=== PATIENT | female | born 1990 | race American Indian/Alaskan Native ===

== ENCOUNTER 2017-09-21 12:40 | Emergency (ER) | payer MEDICAID ==
[2017-09-21] MEDS ORDERED: ZOFRAN IV ONE (14:26)
[2017-09-21] MEDS ORDERED: NACL 0.9% 1000 ML 1,000 ML IV ONE (14:26)
--- NOTE | 2017-09-21 14:27 | Emergency Department Report ---
Blank Doc - Documentation Documentation: Patient is 27 to his old, 3 one was one miscarriage. Patient is 15 weeks with no care presented with nausea vomiting and dizziness for the last 3 days. Patient denied any vaginal bleeding or vaginal discharge. Patient will need IV fluids, Zofran and ultrasound.
--- NOTE | 2017-09-21 14:29 | Emergency Department Report ---
ED Dizziness HPI - General Chief Complaint: Dizziness Stated Complaint: /DIZZINESS Time Seen by Provider: 09/21/17 14:15 Source: patient Mode of arrival: Ambulatory Limitations: No Limitations - History of Present Illness Initial Comments: Patient is 27 to his old, 3 one was one miscarriage. Patient is 15 weeks with no care presented with nausea vomiting and dizziness for the last 3 days. Patient denied any vaginal bleeding or vaginal discharge. She denies any abdominal pain. She says she recently moved here from [place] and she secondary likely just and it's not helping. She does not have BUSINESS INITIATIVES MANAGER doctor in [place] she says she just got her insurance activated. Patient denies concern for STD and says she had STD check when she was first seen by BUSINESS INITIATIVES MANAGER [place]. She said it was negative and she is not having any symptoms for STD. Last nausea. Was 06/10/2017. Denies any urinary burning, frequency or urgency but reports that a urine is dark in color. Denies any blood in her urine. MD Complaint: dizziness, lightheadedness, other (nausea and vomiting at his ongoing on and off throughout . Patient reports poor appetite) Onset/Timin (ongoing on and off throughout ) -: days(s) Timing: sudden onset History of Same: No History of Trauma: No Severity: moderate Improves With: nothing Worsens With: nothing Associated Symptoms: loss of appetite, other (patient and reportedly nausea and vomiting and with no appetite). denies: ataxia, chest pain, confusion, cough, diaphoresis, fever/chills, malaise, rash, seizure, shortness of breath, syncope, weakness - Related Data Home Medications Medication Instructions Recorded Confirmed Last Taken Doxylamine Succinate/Vit B6 1 each PO 09/21/17 09/20/17 09:00 [uJan Manuel Gonzalez 10-10 mg Tablet] Pnv No.118/Iron Fumarate/FA 1 each PO QDAY 09/21/17 09/21/17 09/20/17 09:00 [ 19 Chewable] Previous Rx's Medication Instructions Recorded Last Taken Type Nitrofurantoin Monohyd/M-Cryst 100 mg PO Q12H 7 Days #14 capsule 09/21/17 Unknown Rx [Macrobid 100 mg Capsule] Ondansetron [Zofran Odt] 4 mg PO Q8H PRN #12 tab.rapdis 09/21/17 Unknown Rx Allergies Allergy/AdvReac Type Severity Reaction Status Date / Time No Known Allergies Allergy Unverified 09/21/17 13:00 ED Review of Systems ROS: Stated complaint: /DIZZINESS Other details as noted in HPI Constitutional: weakness. denies: chills, fever Eyes: denies: eye pain, eye discharge, vision change ENT: denies: ear pain, throat pain Respiratory: denies: cough, orthopnea, shortness of breath, SOB with exertion, SOB at rest, stridor, wheezing Cardiovascular: denies: chest pain, palpitations, dyspnea on exertion, edema, syncope, paroxysmal nocturnal dyspnea Gastrointestinal: nausea, vomiting. denies: abdominal pain, diarrhea, constipation, hematemesis, melena, hematochezia Genitourinary: other (abnormal urine). denies: urgency, dysuria, frequency, hematuria, discharge Musculoskeletal: denies: back pain, joint swelling, arthralgia, myalgia Skin: denies: rash, lesions Neurological: denies: headache, weakness, paresthesias, abnormal gait ED Past Medical Hx - Past Medical History Previous Medical History?: Yes Additional medical history: Vaginal delivery 05-30-2010, Miscarriage - Surgical History Past Surgical History?: Yes - Family History Family history: hypertension - Social History Smoking Status: Never Smoker Substance Use Type: Marijuana Other Social History: just moved to [place] - Medications Home Medications: Home Medications Medication Instructions Recorded Confirmed Last Taken Type Doxylamine Succinate/Vit B6 1 each PO 09/21/17 09/20/17 09:00 History [Juan Manuel Gonzalez 10-10 mg Tablet] Nitrofurantoin Monohyd/M-Cryst 100 mg PO Q12H 7 Days #14 capsule 09/21/17 Unknown Rx [Macrobid 100 mg Capsule] Ondansetron [Zofran Odt] 4 mg PO Q8H PRN #12 tab.rapdis 09/21/17 Unknown Rx Pnv No.118/Iron Fumarate/FA 1 each PO QDAY 09/21/17 09/21/17 09/20/17 09:00 History [ 19 Chewable] ED Physical Exam - General Limitations: No Limitations General appearance: alert, in no apparent distress - Head Head exam: Present: atraumatic, normocephalic, normal inspection - Eye Eye exam: Present: normal appearance, PERRL, EOMI Pupils: Present: normal accommodation - ENT ENT exam: Present: normal exam, normal orophraynx, mucous membranes moist, TM's normal bilaterally, normal external ear exam - Neck Neck exam: Present: normal inspection, full ROM, other (no C-spine tenderness). Absent: tenderness, lymphadenopathy - Respiratory Respiratory exam: Present: normal lung sounds bilaterally. Absent: respiratory distress, chest wall tenderness - Cardiovascular Cardiovascular Exam: Present: regular rate, normal rhythm, normal heart sounds. Absent: systolic murmur, diastolic murmur - GI/Abdominal GI/Abdominal exam: Present: soft, normal bowel sounds. Absent: distended, tenderness, guarding, rebound, rigid, organomegaly, mass, bruit, pulsatile mass - Extremities Exam Extremities exam: Present: normal inspection, full ROM, normal capillary refill , other (No clubbing, cyanosis or edema. +2 pulses to all extremities and no neurovascular compromise). Absent: tenderness, pedal edema, joint swelling, calf tenderness - Back Exam Back exam: Present: normal inspection, full ROM, other (ambulates without any difficulties). Absent: tenderness, CVA tenderness (R), CVA tenderness (L), muscle spasm, paraspinal tenderness, vertebral tenderness, rash noted - Neurological Exam Neurological exam: Present: alert, oriented X3 - Psychiatric Psychiatric exam: Present: normal affect, normal mood - Skin Skin exam: Present: warm, dry, intact, normal color. Absent: rash ED Course Vital Signs 09/21/17 13:00 Temperature 98.3 F Pulse Rate 88 Respiratory 20 Rate Blood Pressure 114/69 O2 Sat by Pulse 100 Oximetry - Reevaluation(s) Reevaluation #1: 09/21/17 15:47 Patient received Zofran 4 mg IV and 1 L of normal saline and she still reported that she is still having some nausea and does not have any appetite. Still waiting and urinalysis for ultrasound completion. Reevaluation #2: 09/21/17 15:48 Patient given another liter of normal saline 1 L, Zofran 4 mg IV, urinalysis sent Reevaluation #3: 09/21/17 17:45 Patient is better after IV Zofran and 2 L of normal saline. She says she is feeling a lot better and her nausea has resolved ED Medical Decision Making - Lab Data Result diagrams: 09/21/17 14:59 09/21/17 14:59 Lab Results 09/21/17 09/21/17 09/21/17 Range/Units 14:59 14:59 14:59 WBC 9.7 (4.5-11.0) K/mm3 RBC 3.67 (3.65-5.03) M/mm3 Hgb 11.3 (10.1-14.3) gm/dl Hct 33.9 (30.3-42.9) % MCV 93 (79-97) fl MCH 31 (28-32) pg MCHC 33 (30-34) % RDW 12.4 L (13.2-15.2) % Plt Count 150 (140-440) K/mm3 Lymph % (Auto) 23.8 (13.4-35.0) % [place] % (Auto) 6.6 (0.0-7.3) % Eos % (Auto) 0.4 (0.0-4.3) % Baso % (Auto) 0.3 (0.0-1.8) % Lymph # 2.3 (1.2-5.4) K/mm3 [place] # 0.6 (0.0-0.8) K/mm3 Eos # 0.0 (0.0-0.4) K/mm3 Baso # 0.0 (0.0-0.1) K/mm3 Seg Neutrophils % 68.9 (40.0-70.0) % Seg Neutrophils # 6.7 (1.8-7.7) K/mm3 Sodium 139 (137-145) mmol/L Potassium 3.3 L (3.6-5.0) mmol/L Chloride 103.5 (98-107) mmol/L Carbon Dioxide 24 (22-30) mmol/L Anion Gap 15 mmol/L BUN 5 L (7-17) mg/dL Creatinine 0.5 L (0.7-1.2) mg/dL Estimated GFR > 60 ml/min BUN/Creatinine Ratio 10 % Glucose 78 (65-100) mg/dL Calcium 8.8 (8.4-10.2) mg/dL Total Bilirubin 1.30 H (0.1-1.2) mg/dL AST 13 (5-40) units/L ALT 8 (7-56) units/L Alkaline Phosphatase 47 (35-129) units/L Total Protein 6.6 (6.3-8.2) g/dL Albumin 3.8 L (3.9-5) g/dL Albumin/Globulin Ratio 1.4 % HCG, Quant 42795 H (0-4) mIU/mL Urine Color (Yellow) Urine Turbidity (Clear) Urine pH (5.0-7.0) Ur Specific [place] (1.003-1.030) Urine Protein (Negative) mg/dL Urine Glucose (UA) (Negative) mg/dL Urine Ketones (Negative) mg/dL Urine Blood (Negative) Urine Nitrite (Negative) Urine Bilirubin (Negative) Urine Urobilinogen (<2.0) mg/dL Ur Leukocyte Esterase (Negative) Urine WBC (Auto) (0.0-6.0) /HPF Urine RBC (Auto) (0.0-6.0) /HPF U Epithel Cells (Auto) (0-13.0) /HPF Amorphous Crystals Urine Mucus /HPF Blood Type 09/21/17 09/21/17 Range/Units 15:06 15:51 WBC (4.5-11.0) K/mm3 RBC (3.65-5.03) M/mm3 Hgb (10.1-14.3) gm/dl Hct (30.3-42.9) % MCV (79-97) fl MCH (28-32) pg MCHC (30-34) % RDW (13.2-15.2) % Plt Count (140-440) K/mm3 Lymph % (Auto) (13.4-35.0) % [place] % (Auto) (0.0-7.3) % Eos % (Auto) (0.0-4.3) % Baso % (Auto) (0.0-1.8) % Lymph # (1.2-5.4) K/mm3 [place] # (0.0-0.8) K/mm3 Eos # (0.0-0.4) K/mm3 Baso # (0.0-0.1) K/mm3 Seg Neutrophils % (40.0-70.0) % Seg Neutrophils # (1.8-7.7) K/mm3 Sodium (137-145) mmol/L Potassium (3.6-5.0) mmol/L Chloride (98-107) mmol/L Carbon Dioxide (22-30) mmol/L Anion Gap mmol/L BUN (7-17) mg/dL Creatinine (0.7-1.2) mg/dL Estimated GFR ml/min BUN/Creatinine Ratio % Glucose (65-100) mg/dL Calcium (8.4-10.2) mg/dL Total Bilirubin (0.1-1.2) mg/dL AST (5-40) units/L ALT (7-56) units/L Alkaline Phosphatase (35-129) units/L Total Protein (6.3-8.2) g/dL Albumin (3.9-5) g/dL Albumin/Globulin Ratio % HCG, Quant (0-4) mIU/mL Urine Color Yellow (Yellow) Urine Turbidity Turbid (Clear) Urine pH 7.0 (5.0-7.0) Ur Specific [place] 1.018 (1.003-1.030) Urine Protein <15 mg/dl (Negative) mg/dL Urine Glucose (UA) Neg (Negative) mg/dL Urine Ketones Neg (Negative) mg/dL Urine Blood Neg (Negative) Urine Nitrite Neg (Negative) Urine Bilirubin Neg (Negative) Urine Urobilinogen 4.0 (<2.0) mg/dL Ur Leukocyte Esterase Sm (Negative) Urine WBC (Auto) 13.0 H (0.0-6.0) /HPF Urine RBC (Auto) 3.0 (0.0-6.0) /HPF U Epithel Cells (Auto) 9.0 (0-13.0) /HPF Amorphous Crystals 1+ Urine Mucus 2+ /HPF Blood Type A POSITIVE Urine culture sent and pending - Radiology Data Radiology results: report reviewed Ultrasounds obstetrics ultrasound transabdominal less than 14 weeks shows single live intrauterine gestation as stated made it at 14 weeks and 6 days. No evidence of placental abruption. heart rate is 149 bpm. - Medical Decision Making ED course Diagnosis 1: Nausea and vomiting -resolved patient given normal saline 2 L emergency room and able to tolerate oral cranberry juice. She is also given Zofran 4 mg IV 2 doses and emergency room and her nausea is now resolved. Plan to discharge home on Zofran. Patient's already and I cleaned just that was prescribed by her BUSINESS INITIATIVES MANAGER in [place] and she takes at night. 2: at 14 weeks-she is on vitamin but she is new to [place] so does not have BUSINESS INITIATIVES MANAGER so we will refer to BUSINESS INITIATIVES MANAGER for care Ultrasounds obstetrics ultrasound transabdominal less than 14 weeks shows single live intrauterine gestation as stated made it at 14 weeks and 6 days. No evidence of placental abruption. heart rate is 149 bpm. 3:Hypokalemia-this is mild with potassium of 3.3. I instructed the patient that she needs to increase potassium intake by eating potassium-rich food and she was given information on potassium-rich fluid to include banana and cantaloupe and to drink some Gatorade which has electrolytes. 4: Acute cystitis without hematuria-patient will be sent home on Macrobid and encouraged to increase her fluid intake to at least 2-3 L of water/cranberry juice/Gatorade daily. Urine culture sent. Urinalysis positive for leukocyte esterase, bacteria and white blood cells. 5 :dizziness-resolved after 2 L of IV fluid. Ultrasound report reviewed and laboratory report reviewed. See detailed information and radiology and laboratory section. Referral to my BUSINESS INITIATIVES MANAGER given Prescription for MacroKate lopez Patient instructed to increase her fluid intake, take nausea medication prior to eat in, instructed on medication, treatment plan, diagnosis. Patient was also given resolved on ultrasound and labs to include CBC, chemistry and urinalysis test. D/C home in stable condition - Differential Diagnosis hyperemesis gravidarum, electrolyte imbalance, gastritis, UTI Critical care attestation.: If time is entered above; I have spent that time in minutes in the direct care of this critically ill patient, excluding procedure time. ED Disposition Clinical Impression: Dizziness, Hypokalemia, Acute cystitis without hematuria Nausea & vomiting Qualifiers: Vomiting type: unspecified Vomiting Intractability: non-intractable Qualified Code(s): R11.2 - Nausea with vomiting, unspecified Qualifiers: Weeks of gestation: 14 weeks Qualified Code(s): Z3A.14 - 14 weeks gestation of Disposition: DC-01 TO HOME OR SELFCARE Is pt being admited?: No Does the pt Need Aspirin: No Condition: Stable Instructions: Dizziness (ED), Hypokalemia (ED), Acute Nausea and Vomiting (ED) , (ED), Morning Sickness (ED), Urinary Tract Infection in Women (ED) Additional Instructions: Increased fluid intake to 2-3 L per day. Take medication as prescribed Please follow up with my BUSINESS INITIATIVES MANAGER as discussed Take antibiotic for urinary tract infection Prescriptions: Nitrofurantoin Monohyd/M-Cryst [Macrobid 100 mg Capsule] 100 mg PO Q12H 7 Days # 14 capsule Ondansetron [Zofran Odt] 4 mg PO Q8H PRN #12 tab.rapdis PRN Reason: Nausea And Vomiting Referrals: [facility] [Provider Group] - 09/22/17 Forms: Work/School Release Form(ED)
[2017-09-21 15:30] LABS: Basophils % (Auto) 0.3 % (0.0-1.8); Eosinophils % (Auto) 0.4 % (0.0-4.3); Hematocrit 33.9 % (30.3-42.9); Hemoglobin 11.3 gm/dl (10.1-14.3); Lymphocytes # (Auto) 2.3 K/mm3 (1.2-5.4); Lymphocytes % (Auto) 23.8 % (13.4-35.0); Mean Corpuscular HGB Conc 33 % (30-34); Mean Corpuscular Hemoglobin 31 pg (28-32); Mean Corpuscular Volume 93 fl (79-97); Monocytes # (Auto) 0.6 K/mm3 (0.0-0.8); Monocytes % (Auto) 6.6 % (0.0-7.3); Platelet Count 150 K/mm3 (140-440); Red Blood Count 3.67 M/mm3 (3.65-5.03); Red Cell Distribution Width 12.4 % (13.2-15.2)
[2017-09-21 15:53] LABS: Alanine Aminotransferase 8 units/L (7-56); Albumin 3.8 g/dL (3.9-5); BUN/Creatinine Ratio 10; Blood Urea Nitrogen 5 mg/dL (7-17); Calcium 8.8 mg/dL (8.4-10.2); Hemolysis Index 1
[2017-09-21 16:36] LABS: Amorphous Crystals,Urine 1+; Bilirubin,Urine NEG (Negative); Blood,Urine NEG (Negative); Color,Urine Yellow (Yellow); Mucus,Urine 2+ /HPF; Protein,Urine <15 mg/dL mg/dL (Negative)
--- NOTE | 2017-09-21 17:03 | Ultrasound Report ---
FINAL REPORT EXAM: US OB > = 14 WEEKS FETUS HISTORY: ABDOMINAL PAIN TECHNIQUE: Obstetrical ultrasound transabdominal PRIORS: None. FINDINGS: Single live intrauterine gestation present cardiac activity is present with heart rate of 149 beats per minute Cervical length is 3.98 centimeters Placenta is grade 0 and right lateral. No evidence for placental abruption biometric measurements were obtained Biparietal diameter 15 weeks 0 days Head circumference 15 weeks 5 days abdominal circumference 14 weeks 5 days Femur length 14 weeks 5 days Based on today's exam estimated gestational age 14 weeks 6 days with estimated date of delivery March 16, 2018 IMPRESSION: Single live intrauterine gestation estimated at 14 weeks 6 days No evidence for placental abruption
[2017-09-21 18:06] VITALS: BP 110/70
== END 2017-09-21 18:05 | disposition home or self-care (01) ==
LOC: ED 12:40
DX: O23.12 Infections of bladder in pregnancy, second trimester (principal); O26.892 Other specified pregnancy related conditions, second trimester; E87.6 Hypokalemia; F12.10 Cannabis abuse, uncomplicated; Z3A.14 14 weeks gestation of pregnancy
CPT/HCPCS: 36415; 76805; 80053; 81001; 84702; 85025; 86900; 86901; 96361; 96374; 99284; J2405; J7030

== ENCOUNTER 2018-01-01 15:50 | Emergency (ER) | payer MEDICAID ==
[2018-01-01] MEDS ORDERED: XYLOCAINE TOPICAL 2% 5ML TP ONE (17:44)
--- NOTE | 2018-01-01 17:49 | Emergency Department Report ---
ED Female HPI - General Chief complaint: Rectal Pain Stated complaint: RECTUM PAIN Time Seen by Provider: 01/01/18 17:15 Source: patient Mode of arrival: Ambulatory Limitations: No Limitations - History of Present Illness Initial comments: This is a 27-year-old -[place] female who presents with severe anal pain from hemorrhoids for 1 week. Patient reports she is 29 weeks gestation with history of hemorrhoid flare dorm . Last menstrual period 2017, A2. She has used everything [id number] with no improvement of symptoms. Patient states symptoms got worse overnight, she is unable to sit. Patient reports pain as 10 out of 10 on pain scale and constant. She denies constipation, diarrhea, fever, or bleeding. MD Complaint: other (anal pain) Onset/Timin -: week(s) Location: perineum Radiation: non-radiating Severity: severe Severity scale (0 -10): 10 Quality: sharp, aching Consistency: constant Improves with: none Worsens with: movement, other (bowel movement and sitting) Are you Now?: Yes Last Menstrual Period: 08/08/17 EDC: 05/15/18 - Related Data Sexually active: Yes : 4 Para: 1 A: 2 Home Medications Medication Instructions Recorded Confirmed Last Taken Doxylamine Succinate/Vit B6 1 each PO 09/21/17 09/20/17 09:00 [Diclegis Dr 10-10 mg Tablet] Pnv No.118/Iron Fumarate/FA 1 each PO QDAY 09/21/17 09/21/17 09/20/17 09:00 [ 19 Chewable] Previous Rx's Medication Instructions Recorded Last Taken Type Nitrofurantoin Monohyd/M-Cryst 100 mg PO Q12H 7 Days #14 capsule 09/21/17 Unknown Rx [Macrobid 100 mg Capsule] Ondansetron [Zofran Odt] 4 mg PO Q8H PRN #12 tab.rapdis 09/21/17 Unknown Rx Dibucaine 1% [Nupercainal] 1 applicatio MO TID #1 tube 01/01/18 Unknown Rx Pramoxine HCl [Proctofoam] 5 applic TP TID #1 foam 01/01/18 Unknown Rx Allergies Allergy/AdvReac Type Severity Reaction Status Date / Time No Known Allergies Allergy Unverified 09/21/17 13:00 ED Review of Systems ROS: Stated complaint: RECTUM PAIN Other details as noted in HPI Constitutional: denies: chills, fever Respiratory: denies: cough, shortness of breath, wheezing Cardiovascular: as per HPI Gastrointestinal: other (anal pain from hemorrhoid) Genitourinary: denies: urgency, dysuria, discharge Neurological: denies: headache, weakness, paresthesias Psychiatric: denies: anxiety, depression ED Past Medical Hx - Past Medical History Previous Medical History?: Yes Additional medical history: Vaginal delivery 05-30-2010, Miscarriage. vertigo Hemorroids - Surgical History Past Surgical History?: No - Social History Smoking Status: Former Smoker Substance Use Type: Marijuana - Medications Home Medications: Home Medications Medication Instructions Recorded Confirmed Last Taken Type Doxylamine Succinate/Vit B6 1 each PO 09/21/17 09/20/17 09:00 History [Dicmartins Dr 10-10 mg Tablet] Nitrofurantoin Monohyd/M-Cryst 100 mg PO Q12H 7 Days #14 capsule 09/21/17 Unknown Rx [Macrobid 100 mg Capsule] Ondansetron [Zofran Odt] 4 mg PO Q8H PRN #12 tab.rapdis 09/21/17 Unknown Rx Pnv No.118/Iron Fumarate/FA 1 each PO QDAY 09/21/17 09/21/17 09/20/17 09:00 History [ 19 Chewable] Dibucaine 1% [Nupercainal] 1 applicatio MO TID #1 tube 01/01/18 Unknown Rx Pramoxine HCl [Proctofoam] 5 applic TP TID #1 foam 01/01/18 Unknown Rx ED Physical Exam - General Limitations: No Limitations General appearance: alert, in no apparent distress - Respiratory Respiratory exam: Present: normal lung sounds bilaterally. Absent: respiratory distress - Cardiovascular Cardiovascular Exam: Present: regular rate, normal rhythm. Absent: systolic murmur, diastolic murmur, rubs, gallop - GI/Abdominal GI/Abdominal exam: Present: soft, normal bowel sounds - Rectal Rectal exam: Present: hemorrhoids (prolapsed pink enlarged hemorroids, tender, no active bleeding) - Neurological Exam Neurological exam: Present: alert, oriented X3 - Psychiatric Psychiatric exam: Present: normal affect, normal mood - Skin Skin exam: Present: warm, dry, intact, normal color. Absent: rash ED Course Vital Signs 01/01/18 01/01/18 16:10 19:15 Temperature 98.6 F 98.1 F Pulse Rate 110 H 74 Respiratory 18 18 Rate Blood Pressure 131/73 Blood Pressure 102/59 [Right] O2 Sat by Pulse 110 H Oximetry ED Medical Decision Making - Medical Decision Making Patient was examined by me and Dr. Benton in fast track. Vitals are normal. Applied lidocaine viscous to hemorrhoids with minimal improvement of symptoms. Consulted Dr. Teran from Gastroenterology and advised to start proctofoam. Consulted general surgery Dr. Walsh and advised to start proctofoam and dibucaine and f/u in office on Wednesday. Ordered dibucaine and applied to area with improved pain management. Start dibucaine and proctofoam. Plan discussed with patient to discharge home and follow-up plan. Patient agreed with plan. Patient discharged home in stable condition. Follow up with PCP in 2-3 days. Critical care attestation.: If time is entered above; I have spent that time in minutes in the direct care of this critically ill patient, excluding procedure time. ED Disposition Clinical Impression: External hemorrhoids with complication Disposition: DC-01 TO HOME OR SELFCARE Is pt being admited?: No Does the pt Need Aspirin: No Condition: Stable Instructions: Hemorrhoids (ED) Additional Instructions: Apply proctofoam and dibucaine to hemorrhoids as prescribed. Follow up with general surgery from referrals next week for further management of care. Prescriptions: Dibucaine 1% [Nupercainal] 1 applicatio MO TID #1 tube Pramoxine HCl [Proctofoam] 5 applic TP TID #1 foam Referrals: SHERIF WALSH MD [Staff Physician] - 3-5 Days Time of Disposition: 19:14 Print Language: PORTUGUESE
[2018-01-01] MEDS ORDERED: NUPERCAINAL PR ONE (18:03)
[2018-01-01] MEDS ORDERED: COLACE PO ONE (18:06)
[2018-01-01 19:16] VITALS: BP 102/59
== END 2018-01-01 19:21 | disposition home or self-care (01) ==
LOC: ED 15:50
DX: O22.43 Hemorrhoids in pregnancy, third trimester (principal); O26.893 Other specified pregnancy related conditions, third trimester; F12.10 Cannabis abuse, uncomplicated; Z87.891 Personal history of nicotine dependence; Z3A.29 29 weeks gestation of pregnancy
CPT/HCPCS: 99283